=== PATIENT | female | born 1970 | race Caucasian/White ===

== ENCOUNTER 2016-03-02 19:08 | Emergency (ER) | payer OTHER ==
[2016-03-02 19:16] VITALS: BP 105/61
[2016-03-02] MEDS ORDERED: Ibuprofen TAB* 600 MG PO ONE (20:23)
[2016-03-02] MEDS ORDERED: Albuterol/Ipratropium NEB.SOL* Albuterol 2.5 MG/Ipratropium 0.5 MG 3 ML INH ONE (20:25)
--- NOTE | 2016-03-02 20:38 | ED ---
Respiratory - HPI Summary HPI Summary: 45 female presents to ED complaining of chest congestion that started approximately 3 weeks ago. Patient states she was seen by her PCP at onset approximately 3 weeks ago and was given Augmentin. She took the entire dose and had felt some improvement. After about a week her symptoms returned and she states were worse than the first time. She saw her PCP again at this time and was prescribed Doxycycline and Ipatropium-bromide nebulizer. She states neither have improved her symptoms. She states "she is just sick of feeling so crappy". She complains of cough with occasional green mucus production and feeling tight chest congestion. Admits to ear pain, sinus pressure and nasal congestion with post-nasal drip. Admits to nausea but denies vomiting, abdominal pain, diarrhea , constipation and chest pain. She does have body aches and was tested for flu at her PCP as well, however it was negative. She says it gets worse at night and has difficulty breathing. She does not know if she has had a fever because she does not own a thermometer but she admits to chills. - History of Current Complaint Hx Obtained From: Patient Onset/Duration: Sudden Onset, Lasting Weeks Timing: Constant Initial Severity: Mild Current Severity: Moderate Pain Intensity: 10 Character: Cough (Productive) - green mucus, occasionally, Dyspnea on Exertion Sputum Amount: Small Sputum Color: Green Aggravating Factor(s): URI, Deep Breaths, Recumbent Position Alleviating Factor(s): Antibiotics - first treatment of augmentin 3 weeks ago seemed to give some relief Associated Signs and Symptoms: SOB, URI, Chest Pain with Cough, Chills, Nasal Congestion, Sinus Discomfort - Risk Factors Status Asthmaticus Risk Factors: Negative Pulmonary Embolism Risk Factors: Negative Cardiac Risk Factors: Negative Pseudomonas Risk Factors: Negative Tuberculosis Risk Factors: Negative <Mary Davalos - Last Filed: 03/02/16 21:39> <Dk Michael - Last Filed: 03/02/16 21:48> - History of Current Complaint Chief Complaint: EDUpperRespComplaint Stated Complaint: DX BRONCHITIS/NOT IMPROVING Time Seen by Provider: 03/02/16 19:38 - Allergy/Home Medications Allergies/Adverse Reactions: Allergies Allergy/AdvReac Type Severity Reaction Status Date / Time Iodine Allergy Unknown Difficulty Verified 04/22/15 13:20 Breathing Azithromycin [From Zithromax] Allergy RASH, Verified 04/22/15 13:20 DIFFICULTY BREATHING Codeine Allergy BLOOD Verified 04/22/15 13:20 PRESSURE DROPS Hydrocodone Allergy RASH Verified 04/22/15 13:20 DIFFICULTY BREATHING Iodinated Contrast Media Allergy RASH, Verified 04/22/15 13:20 [IV CONTRAST DYE] DIFFICULTY BREATHING Iodinated Diagnostic Agents Allergy Hives/Diff. Verified 04/22/15 13:20 Breathing/I tching Nitrofurantoin Allergy RASH, Verified 04/22/15 13:20 [From Macrodantin] DIFFICULTY BREATHING Prednisone Allergy Anaphylatic Verified 04/22/15 13:20 Shock Sulfamethoxazole Allergy RASH Verified 04/22/15 13:20 w/Trimethoprim DIFFICULTY [From Bactrim] BREATHING ALL STEROIDS Allergy RASH, Uncoded 04/22/15 13:20 DIFFICULTY BREATHING MALT,DAIRY Allergy RASH, Uncoded 04/22/15 13:20 DIFFICULTY BREATHING YEAST,SOY,BLACK PEPPER Allergy RASH, Uncoded 04/22/15 13:20 DIFFICULTY BREATHING PMH/Surg Hx/FS Hx/Imm Hx Endocrine/Hematology History: Reports: Hx Thyroid Disease - ON MED Denies: Hx Diabetes Cardiovascular History: Denies: Hx Hypertension, Hx Pacemaker/ICD, Other Cardiovascular Problems/ Disorders Respiratory History: Reports: Hx Asthma - USES INHALER Denies: Hx Chronic Obstructive Pulmonary Disease (COPD) GI History: Reports: Hx Gastroesophageal Reflux Disease - ON MED Denies: Hx Ulcer History: Reports: Hx Kidney Infection - IN THE PAST Musculoskeletal History: Reports: Hx Arthritis - BACK, BILATERAL HANDS AND FEET , Other Musculoskeletal History - FIBROMYALGIA Sensory History: Denies: Hx Contacts or Glasses, Hx Hearing Aid Opthamlomology History: Denies: Hx Contacts or Glasses Neurological History: Reports: Hx Headaches - SINUS HEADACHES, Hx Migraine - AROUND TIME OF MENSES, Hx Nerve Disease - FIBROMYALGIA Psychiatric History: Reports: Hx Anxiety, Hx Depression - BIPOLAR Denies: Hx Panic Disorder - Cancer History Hx Chemotherapy: No Hx Radiation Therapy: No - Surgical History Surgery Procedure, Year, and Place: LT ELBOW SURGERY. LT WRIST SURGERY. GALL BLADDER. RT OVARY REMOVAL. SINUS SURGERY X 4. D&C X 2. [place] FOURTH [place] [facility] [place] Anesthesia Reactions: No Infectious Disease History: Yes Infectious Disease History: Denies: Hx Hepatitis, Hx Human Immunodeficiency Virus (HIV), Traveled Outside the [place] in Last 30 Days - Family History Known Family History: Positive: Cardiac Disease - Social History Alcohol Use: None Substance Use Type: Reports: None Smoking Status (MU): Never Smoked Tobacco <Mary Davalos - Last Filed: 03/02/16 21:39> Review of Systems Positive: Chills, Fatigue Eyes: Negative Positive: Ear Ache, Nasal Discharge. Negative: Epistaxis Cardiovascular: Negative Positive: Shortness Of Breath, Cough, Other - chest congestion, tightness Positive: Nausea. Negative: Abdominal Pain, Vomiting, Diarrhea Genitourinary: Negative Positive: Myalgia. Negative: Arthralgia, Edema Negative: Rash Positive: Headache Psychological: Normal All Other Systems Reviewed And Are Negative: Yes <VerónicagayeMary blevins - Last Filed: 03/02/16 21:39> Physical Exam Triage Information Reviewed: Yes Vital Signs On Initial Exam: Initial Vitals Temp Pulse Resp BP Pulse Ox 98.9 F 81 18 105/61 100 03/02/16 19:13 03/02/16 19:13 03/02/16 19:13 03/02/16 19:13 03/02/16 19:13 Vital Signs Reviewed: Yes Appearance: Positive: Well-Appearing - laying in stretcher, No Pain Distress, Well-Nourished Skin: Positive: Warm, Skin Color Reflects Adequate Perfusion, Dry Head/Face: Positive: Normal Head/Face Inspection Eyes: Positive: Normal, EOMI, MANASA, Conjunctiva Clear ENT: Positive: Normal ENT inspection, Hearing grossly normal, Pharyngeal erythema - post nasal drip noted, irritation, TMs normal, Other - mild maxillary and frontal sinus tenderness on palpation b/l.. Negative: Nasal congestion, Nasal drainage, Tonsillar swelling, Tonsillar exudate Neck: Positive: Supple, Nontender, No Lymphadenopathy Respiratory/Lung Sounds: Positive: Clear to Auscultation, Breath Sounds Present , Fatigue, Other - non productive cough on exam. Negative: Decreased Breath Sounds, Rales, Rhonchi, Tracheal Deviation, Wheezes Cardiovascular: Positive: Normal, RRR, Pulses are Symmetrical in both Upper and Lower Extremities Abdomen Description: Positive: Nontender Bowel Sounds: Positive: Present Musculoskeletal: Positive: Normal Neurological: Positive: Normal, Sensory/Motor Intact, Alert, Oriented to Person Place, Time Psychiatric: Positive: Normal <AnoopMary - Last Filed: 03/02/16 21:39> Vital Signs On Initial Exam: Initial Vitals Temp Pulse Resp BP Pulse Ox 98.9 F 81 18 105/61 100 03/02/16 19:13 03/02/16 19:13 03/02/16 19:13 03/02/16 19:13 03/02/16 19:13 <Dk Michael - Last Filed: 03/02/16 21:48> Diagnostics - Vital Signs Vital Signs Temp Pulse Resp BP Pulse Ox 03/02/16 19:13 98.9 F 81 18 105/61 100 <Mary Davalos - Last Filed: 03/02/16 21:39> - Vital Signs Vital Signs Temp Pulse Resp BP Pulse Ox 03/02/16 20:50 70 97 03/02/16 19:13 98.9 F 81 18 105/61 100 <Dk Michael - Last Filed: 03/02/16 21:48> Disposition - Course Course Of Treatment: Patient was given a nebulizer treatment while in ED and a dose of Ibuprofen to help with pain and inflammation. Patient was informed what she is experiencing is likely viral due to recent antibiotic use without relief. She is allergic to steroids. Due to length of symptoms, did not feel flu treatment or testing was necessary at this time. Ibuprofen will be prescribed to take at home and she was encouraged to use Mucinex and saline rinses daily to help with mucus. - Differential Dx - Cardiopulmonary Differential Diagnoses - Cardiopulmonary: Asthma, Bronchitis, Laryngitis, Sinusitis, Other - pneumonia, rhinosinusitis - Physician Notifications Discussed Care Of Patient With: Dr Michael <Mary Davalos - Last Filed: 03/02/16 21:39> <Dk Michael - Last Filed: 03/02/16 21:48> - Diagnoses Provider Diagnoses: URI (upper respiratory infection), Sinusitis Discharge <Mary Davalos - Last Filed: 03/02/16 21:39> <Dk Michael - Last Filed: 03/02/16 21:48> - Discharge Plan Condition: Stable Disposition: HOME Prescriptions: Ibuprofen TAB* [Advil TAB*] 400 mg PO Q6H PRN #10 tab PRN Reason: Pain Patient Education Materials: Acute Bronchitis (ED) Referrals: Omar Ruth MD [Primary Care Provider] - Additional Instructions: Take OTC Mucinex to help with breaking up the congestion. Take Ibuprofen or Tylenol as needed to help with pain, discomfort and inflammation. Rest and drink plenty of fluids. Symptomatic measures such as swishing with salt aleja and saline rinses may help with symptoms. Continue taking the prescribed Doxycycline until finished and the nebulizer while symptoms persist. If symptoms worsen or do not improve please return to ED. Follow up with your primary care provider is recommended.
--- NOTE | 2016-03-02 21:48 | ED ---
Tammi Lanza Erika, scribed for Dk Michael MD on 03/02/16 at 205 . Progress - Progress Note Progress Note: Consulting on the patient for FAUSTINO Mukherjee. A 45 y/o F presents to the ED with a CC of URI symptoms for the past 3 weeks. She reports that she took augmentin 3 weeks ago, which improved her symptoms for one week, but then they returned. Last week, she took doxycycline, which did not help symptoms. 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 She denies sore throat. Pt states she has not been tested for the flu. She has no known exposure to illness, but states she works at [employer]. Pt states she has never smoked. Hx asthma - takes singulair, albuterol, and a nebulizer of ipratropium bromide. Physical Exam: The patient is well-nourished in no acute distress and in no acute pain. The skin is warm and dry and skin color reflects adequate perfusion. HEENT: The head is normocephalic and atraumatic. The pupils are equal and reactive. The conjunctivae are clear and without drainage. Nares are patent and without drainage. There is bilateral frontal sinus tenderness. There is no post-nasal drip. Mouth reveals moist mucous membranes and the throat is without erythema and exudate. The external ears are intact. The ear canals are patent and without drainage. The tympanic membranes are intact. Neck is supple with full range of motion and non-tender. There are no carotid bruits. There is no neck vein distension. Respiratory: Chest is non-tender. Lungs are clear to auscultation and breath sounds are symmetrical and equal. Cardiovascular: Heart is regular rate and rhythm. There is no murmur or rub auscultated. There is no peripheral edema and pulses are symmetrical and equal. Neurological and Psychological: Patient is alert and cooperative. Please refer to note by FAUSTINO Mukherjee for more information. Course/Dx - Diagnoses Provider Diagnoses: URI (upper respiratory infection), Sinusitis The documentation as recorded by the Tammi maciel Erika accurately reflects the service I personally performed and the decisions made by me, Dk Michael MD.
== END 2016-03-02 22:04 | disposition home or self-care (01) ==
LOC: ED 19:08
DX: J06.9 Acute upper respiratory infection, unspecified (principal); J32.9 Chronic sinusitis, unspecified; E07.9 Disorder of thyroid, unspecified; M79.7 Fibromyalgia; F31.9 Bipolar disorder, unspecified; Z88.2 Allergy status to sulfonamides; Z88.8 Allergy status to other drugs, medicaments and biological substances; Z88.5 Allergy status to narcotic agent; Z88.3 Allergy status to other anti-infective agents; Z91.041 Radiographic dye allergy status
CPT/HCPCS: 93005; 94640; 99282; A9270-GY

== ENCOUNTER 2016-09-10 06:06 | Day surgery (SDC) | payer OTHER ==
[~2016-09-10 06:06] MED LIST: Buffered Lidocaine 0.9% SYRIN* 5 ML/SYR SYRINGE INTRADERM ONE; Sodium Citrate/Citric Acid* 15 ML UDC PO ONE
[2016-09-10 06:19] LABS: Manual Entry Verification ROB0080; UR Preg Internal Control QC Line Present
[2016-09-10] MEDS ORDERED: Sodium Citrate/Citric Acid* 15 ML UDC ONE (06:47)
[2016-09-10] MEDS ORDERED: Buffered Lidocaine 0.9% SYRIN* 5 ML/SYR SYRINGE ONE (06:47)
[2016-09-10] MEDS ORDERED: Silver Nitrate/Potassium Nitr* 1 EA STICK ONE (07:26)
[2016-09-10] MEDS ORDERED: Midazolam* 1 MG/ML 2 ML VIAL (2 MG) ONE (07:34)
[2016-09-10] MEDS ORDERED: Lidocaine 2% PF * 5 ML VIAL ONE (07:34)
[2016-09-10] MEDS ORDERED: Propofol* 10 MG/ML 20 ML BTL IV PUSH ONE (07:34)
[2016-09-10] MEDS ORDERED: fentaNYL* 50 MCG/ML 2 ML VIAL (100 MCG VIAL) ONE (07:35)
[2016-09-10] MEDS ORDERED: DiMENhydriNATE IV* 50 MG/ML VIAL IV PUSH PRN (08:07)
[2016-09-10] MEDS ORDERED: Ketorolac INJ* 30 MG/ML 1 ML VIAL IV PRN (08:07)
[2016-09-10] MEDS ORDERED: fentaNYL* 50 MCG/ML 2 ML VIAL (100 MCG VIAL) IV PRN (08:07)
[2016-09-10] MEDS ORDERED: Ketorolac INJ* 30 MG/ML 1 ML VIAL ONE (09:40)
[2016-09-10 10:08] VITALS: BP 116/69
--- NOTE | 2016-09-10 15:56 | OP ---
DATE OF OPERATION: 09/10/16 - FORMERLY [facility] DATE OF : 74 SURGEON: Tita Weiss MD ANESTHESIA: General endotracheal. PRE-OP DIAGNOSIS: Menorrhagia. POST-OP DIAGNOSIS: Menorrhagia. OPERATIVE PROCEDURE: Hysteroscopy, dilation and curettage. INDICATIONS: This patient is a 45-year-old 1, para 0, who presented with complaint of persistent heavy periods. Endometrial biopsy was performed and returned with benign endometrium. After discussing the patient's options, she desired to have an endometrial ablation performed. She was extensively counseled and consent was signed. ESTIMATED BLOOD LOSS: 50 cc. URINE OUTPUT: 60 cc. IV FLUIDS: 700 cc lactated Ringer's. MATERIALS TO LAB: Endometrial curettings. FINDINGS: Extremely narrow cervical canal and very narrow uterine cavity. Endometrial ablation could not be performed because the ablation device could not be sufficiently opened inside the cavity. COMPLICATIONS: Discontinued ablation. DESCRIPTION OF PROCEDURE: The risks, benefits, and alternatives were described to the patient and informed consent was obtained. The patient was taken to the operating room with IV running, where general anesthesia was induced and found to be adequate. The patient was prepped and draped in normal sterile fashion in a high lithotomy position and Berhane Stirrups. A time out was performed. The bladder was emptied. A bivalved speculum was placed in the vagina and a single- tooth tenaculum was placed in the anterior cervix. Extra small Carter dilators were then used to gradually dilate the cervical canal. The canal was located without difficulty. The uterus sounded to about 7 cm. The cervix was progressively dilated with some difficulty until a 5-mm hysteroscope could be advanced. This was then placed through the cervix and into the uterine cavity. The uterine cavity was visualized and noted to be quite narrow, but otherwise did not seem to have any significant abnormalities. The hysteroscope was removed. The cervix was then additionally dilated to about a size 25 or 26. This was extremely difficult as the cervix was very firm. During this process, the single-tooth tenaculum pulled off from the cervix and caused a laceration on the anterior cervix. The NovaSure device was inserted through the cervix and into the uterine cavity; however, the device could not be adequately opened. After several attempts with this, a different NovaSure device was obtained and this again was unsuccessful at adequately opening. A cavity assessment was performed and this returned positive. The Novasure was removed and hysteroscope was replaced into the uterine cavity. It appeared that the corner points of the NovaSure device had pushed into the myometrium at the very top of the uterus. There was no bleeding from this site and a specific perforation site could not be visualized. Considering these difficulties, the procedure was discontinued at that time. The hysteroscope was removed. The cervical laceration was reapproximated well with 3-0 Polysorb in a running locked stitch. There was excellent hemostasis present. At that time, speculum was removed and the patient was returned to supine position. The patient tolerated the procedure well. Sponge, lap, and needle counts were correct x2. [id number]/[facility] #: [id number] MTDD
== END 2016-09-10 10:29 | disposition home or self-care (01) ==
LOC: OR 06:06
PROVIDERS: ATTEND Obstetrics & Gynecology
DX: N92.0 Excessive and frequent menstruation with regular cycle (principal); J45.909 Unspecified asthma, uncomplicated; F43.10 Post-traumatic stress disorder, unspecified; F31.9 Bipolar disorder, unspecified
CPT/HCPCS: 81025; 88305; A9270-GY; J1885; J2250; J2704; J3010

== ENCOUNTER 2016-09-13 20:41 | Emergency (ER) | payer OTHER ==
--- NOTE | 2016-09-13 20:46 | UC ---
Lower Extremity/Ankle HPI - HPI Summary HPI Summary: 45 year old female presents with complains of right ankle/foot pain post fall. - History of Current Complaint Chief Complaint: UCLowerExtremity Stated Complaint: ANKLE INJURY Time Seen by Provider: 09/13/16 20:45 Hx Last Menstrual Period: 04/25/12 - Allergies/Home Medications Allergies/Adverse Reactions: Allergies Allergy/AdvReac Type Severity Reaction Status Date / Time Iodine Allergy Unknown Difficulty Verified 09/10/16 06:54 Breathing Azithromycin [From Zithromax] Allergy RASH, Verified 09/10/16 06:54 DIFFICULTY BREATHING Codeine Allergy BLOOD Verified 09/10/16 06:54 PRESSURE DROPS Hydrocodone Allergy RASH Verified 09/10/16 06:54 DIFFICULTY BREATHING Iodinated Contrast Media Allergy RASH, Verified 09/10/16 06:54 [IV CONTRAST DYE] DIFFICULTY BREATHING Nitrofurantoin Allergy RASH, Verified 09/10/16 06:54 [From Macrodantin] DIFFICULTY BREATHING Prednisone Allergy Anaphylatic Verified 09/10/16 06:54 Shock Sulfamethoxazole Allergy RASH Verified 09/10/16 06:54 w/Trimethoprim DIFFICULTY [From Bactrim] BREATHING ALL STEROIDS Allergy RASH, Uncoded 09/10/16 06:54 DIFFICULTY BREATHING Environmental: Allergy Congestion Uncoded 09/10/16 06:54 tree/grass/pollen MALT,DAIRY Allergy RASH, Uncoded 09/10/16 06:54 DIFFICULTY BREATHING YEAST,SOY,BLACK PEPPER Allergy RASH, Uncoded 09/10/16 06:54 DIFFICULTY BREATHING Home Medications: Home Medications DOXYcycline CAP(*) [DOXYcycline 100MG CAP(*)] 100 mg PO BID 09/13/16 [History Confirmed 09/13/16] PMH/Surg Hx/FS Hx/Imm Hx Previously Healthy: Yes - Surgical History Surgical History: Yes Surgery Procedure, Year, and Place: LT ELBOW SURGERY. LT WRIST SURGERY. GALL BLADDER. RT OVARY REMOVAL. SINUS SURGERY X 4. LEFT & RIGHT FOOT SURGERY. D& C X 2. LEFT FOURTH TOE REPAIR 2012 [facility] [place] - Family History Known Family History: Positive: Cardiac Disease, Other - Mcnair's Disease ( mother) - Social History Alcohol Use: None Substance Use Type: None Smoking Status (MU): Never Smoked Tobacco - Immunization History Most Recent Tetanus Shot: 2011 Review of Systems Constitutional: Negative Skin: Negative Eyes: Negative ENT: Negative Respiratory: Negative Cardiovascular: Negative Gastrointestinal: Negative Genitourinary: Negative Motor: Negative Neurovascular: Negative Musculoskeletal: Decreased ROM, Edema, Myalgia, Other: - right ankle/foot pain Neurological: Negative Psychological: Negative All Other Systems Reviewed And Are Negative: Yes Physical Exam Triage Information Reviewed: Yes Eye Exam: Normal ENT Exam: Normal Dental Exam: Normal Neck exam: Normal Neck: Positive: 1 Respiratory Exam: Normal Cardiovascular Exam: Normal Abdominal Exam: Normal Musculoskeletal: Positive: Other: - right ankle/foot pain Neurological Exam: Normal Psychological Exam: Normal Skin Exam: Normal Lower Extremity Course/Dx - Differential Dx/Diagnosis Provider Diagnoses: right ankle/foot sprain Discharge - Discharge Plan Condition: Stable Disposition: HOME Prescriptions: Meloxicam [Mobic] 7.5 mg PO BID #30 tab Patient Education Materials: Ankle Sprain (ED) Referrals: Dayron Daugherty MD [Medical Doctor] - Omar Ruth MD [Primary Care Provider] -
[2016-09-13 20:47] VITALS: BP 103/55
--- NOTE | 2016-09-13 22:22 | RAD ---
INDICATION: Foot and ankle injury COMPARISON: Fluoroscopic imaging dated October 26, 2014 TECHNIQUE: 3 views of the right ankle and 3 views of the right foot were obtained. FINDINGS: There is an intact single medullary screw spanning the right fifth metatarsal with the midline portion of the screw extending from the cortex of the bone 4 mm. The bones are normal alignment. Joint spaces appear maintained. No fracture is seen. IMPRESSION: 1. NO RADIOGRAPHICALLY APPARENT ACUTE FRACTURE OR DISLOCATION INVOLVING THE RIGHT FOOT OR ANKLE. 2. THERE IS A SINGLE MEDULLARY SCREW SPANNING THE RIGHT FIFTH METATARSAL. THE MIDLINE PORTION OF THE SCREW EXTENDS BEYOND THE MEDIAL MARGIN OF THE METATARSAL.
== END 2016-09-13 22:10 | disposition home or self-care (01) ==
LOC: UCEAST 20:41
DX: S93.401A Sprain of unspecified ligament of right ankle, initial encounter (principal); W19.XXXA Unspecified fall, initial encounter; Z88.2 Allergy status to sulfonamides; Z88.3 Allergy status to other anti-infective agents; Z88.5 Allergy status to narcotic agent; Z91.041 Radiographic dye allergy status
CPT/HCPCS: 99213; G0463

== ENCOUNTER 2016-12-08 19:44 | Emergency (ER) | payer OTHER ==
[2016-12-08 20:05] VITALS: BP 93/57
--- NOTE | 2016-12-08 20:09 | UC ---
Lower Extremity/Ankle HPI - HPI Summary HPI Summary: 45y/o female with h/o PTSD, bipolar, fibromyalgia presents with ankle pain today after dog ran between legs. patient states same thing occurred ~ 1 week ago and suffered an ankle sprain. no ankle injuries, h/o bunion surgery right lateral foot. no other complaints. PMH- bipolar, PTSD, fibromyalgia, meds- lamictal, wellbutrin, ativan. - History of Current Complaint Chief Complaint: UCLowerExtremity Stated Complaint: ANKLE INJURY Time Seen by Provider: 12/08/16 19:46 Hx Obtained From: Patient Hx Last Menstrual Period: 11/18/16 Onset/Duration: Sudden Onset, Lasting Hours Severity Initially: Moderate Severity Currently: Moderate - Allergies/Home Medications Allergies/Adverse Reactions: Allergies Allergy/AdvReac Type Severity Reaction Status Date / Time Iodine Allergy Unknown Difficulty Verified 12/08/16 20:05 Breathing Azithromycin [From Zithromax] Allergy RASH, Verified 12/08/16 20:05 DIFFICULTY BREATHING Codeine Allergy BLOOD Verified 12/08/16 20:05 PRESSURE DROPS Hydrocodone Allergy RASH Verified 12/08/16 20:05 DIFFICULTY BREATHING Iodinated Contrast Media Allergy RASH, Verified 12/08/16 20:05 [IV CONTRAST DYE] DIFFICULTY BREATHING Nitrofurantoin Allergy RASH, Verified 12/08/16 20:05 [From Macrodantin] DIFFICULTY BREATHING Prednisone Allergy Anaphylatic Verified 12/08/16 20:05 Shock Sulfamethoxazole Allergy RASH Verified 12/08/16 20:05 w/Trimethoprim DIFFICULTY [From Bactrim] BREATHING ALL STEROIDS Allergy RASH, Uncoded 09/10/16 06:54 DIFFICULTY BREATHING Environmental: Allergy Congestion Uncoded 09/10/16 06:54 tree/grass/pollen MALT,DAIRY Allergy RASH, Uncoded 09/10/16 06:54 DIFFICULTY BREATHING YEAST,SOY,BLACK PEPPER Allergy RASH, Uncoded 09/10/16 06:54 DIFFICULTY BREATHING Home Medications: Home Medications Albuterol HFA INHALER* [Ventolin HFA Inhaler*] PRN 12/08/16 [History] Epinephrine [Epipen 2-Joseph] 0.3 mg IM PRN 12/08/16 [History] PMH/Surg Hx/FS Hx/Imm Hx Previously Healthy: Yes - ptsd bipolar, recent ankle sprain Psychological History: Anxiety, Depression, Bipolar Disorder, Post Traumatic Stress Disorder - Surgical History Surgical History: Yes Surgery Procedure, Year, and Place: LT ELBOW SURGERY. LT WRIST SURGERY. GALL BLADDER. RT OVARY REMOVAL. SINUS SURGERY X 4. LEFT & RIGHT FOOT SURGERY. D& C X 2. LEFT FOURTH TOE REPAIR 2012 [facility] – [place] - Family History Known Family History: Positive: Cardiac Disease, Other - Mcnair's Disease ( mother) - Social History Alcohol Use: None Substance Use Type: None Smoking Status (MU): Never Smoked Tobacco - Immunization History Most Recent Tetanus Shot: 2011 Review of Systems Constitutional: Negative Musculoskeletal: Arthralgia, Decreased ROM, Edema, Myalgia Is Patient Immunocompromised?: No All Other Systems Reviewed And Are Negative: Yes Physical Exam Triage Information Reviewed: Yes Appearance: Well-Appearing, No Pain Distress - none at rest, Well-Nourished Vital Signs: Initial Vital Signs Temp 97.5 F 12/08/16 20:01 Pulse 96 12/08/16 20:01 Resp 16 12/08/16 20:01 BP 93/57 12/08/16 20:01 Pulse Ox 100 12/08/16 20:01 Eyes: Positive: Conjunctiva Clear Musculoskeletal: Positive: ROM Intact - PROM intact, decreased ROM right ankle with DF/PF due to pain, strenght 2/5 . minimal ecchymosis over lat mal, moderate swelling, no intability appreciate, achillies intact, PT 2+ b/l., Edema @ - lateral malleolus Neurological Exam: Normal Neurological: Positive: Other: - SITLT right LE Psychological Exam: Normal Skin Exam: Normal - intact skin Lower Extremity Course/Dx - Course Course Of Treatment: radiograph- negative for fracture. patient has CAM boot at home, gel cast given with instructions to use CAM boot with weight bearing as tolerated using crutches (has at home) until minimal pain and increase as pain allows, follow up with ortho if no improvement within 3-5 days. motrin for pain - Differential Dx/Diagnosis Provider Diagnoses: ankle sprain, right Discharge - Discharge Plan Condition: Good Disposition: HOME Patient Education Materials: Ankle Sprain (ED), Ankle Stirrup Splint (ED) Referrals: Omar Ruth MD [Primary Care Provider] - Jama Albrecht MD [Medical Doctor] - Additional Instructions: - Motrin 400-600mg every 6 hours x 24 hours to decrease swelling - CAM boot for 1-2 days then use gel cast as needed for comfort or when doing longer walks/ uneven ground x 1-2 months - follow up with orthopedics within 5-7 days if no improvement - weight bearing as tolerated, use crutches for support over next 3-7 days
--- NOTE | 2016-12-08 20:51 | RAD ---
INDICATION: Right ankle injury COMPARISON: September 13, 2009 TECHNIQUE: AP, lateral, and oblique views were obtained. FINDINGS: There is no acute fracture. The ankle mortise is intact. There is mild lateral soft tissue swelling. There is postsurgical change but the fifth metatarsal, unchanged. IMPRESSION: MILD LATERAL SOFT TISSUE SWELLING. NO ACUTE FRACTURE.
== END 2016-12-08 21:10 | disposition home or self-care (01) ==
LOC: UCEAST 19:44
DX: S93.401A Sprain of unspecified ligament of right ankle, initial encounter (principal); X58.XXXA Exposure to other specified factors, initial encounter; Y93.9 Activity, unspecified; Y92.9 Unspecified place or not applicable; F41.9 Anxiety disorder, unspecified; F31.9 Bipolar disorder, unspecified; Z88.5 Allergy status to narcotic agent; Z88.2 Allergy status to sulfonamides; Z88.8 Allergy status to other drugs, medicaments and biological substances; Z88.1 Allergy status to other antibiotic agents; Z91.041 Radiographic dye allergy status; Z90.49 Acquired absence of other specified parts of digestive tract
CPT/HCPCS: 99213; G0463

== ENCOUNTER 2017-01-19 13:16 | Emergency (ER) | payer OTHER ==
[2017-01-19] MEDS ORDERED: Diazepam SYRINGE* 5 MG/ML 2 ML SYRINGE (10 MG total) IM ONE (14:20)
[2017-01-19 14:36] VITALS: BP 95/61
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
== END 2017-01-19 14:35 | disposition home or self-care (01) ==
LOC: ED 13:16
DX: F41.9 Anxiety disorder, unspecified (principal); F43.10 Post-traumatic stress disorder, unspecified; F32.9 Major depressive disorder, single episode, unspecified
CPT/HCPCS: 96372; 99281; J3360

== ENCOUNTER 2017-10-13 23:07 | Emergency (ER) | payer OTHER ==
--- OUTSIDE RECORDS SUMMARY | 2017-10-13 23:20 | XMS REPORT ---
:1970 External Reference #:[id number] Author Organization [facility] Address [address] [place] [address] Phone [phone] Care Team Providers Name Role Phone Omar Ruth MD Primary Care Physician Unavailable Payers Type Date Identification Numbers Payment Provider Subscriber Commercial Effective: Policy Number: [employer] Godfrey Sheldon 2015 [id number] Group Number: [id number] [address] PayID: [id number] [place] [address] Commercial Effective: 2016 Policy Number: [facility] Suzanne Sheldon [id number] Expires: 2018 Group Number: 50% [id number] PayID: [id number] [place] [address] Workers Compensation Effective: Policy Number: Helena Rubio 2016 [id number] Inc c/o [employer] Monalisa Onset: 2016 Group Number: [id number] [address] [address] PayID: [id number] [place] [address] Workers Compensation Onset: 2008 Policy Number: David Suzanne Rubio [id number] Monalisa PayID: [id number] [address] [place] [address] Problems Date Description Provider Status Onset: 06/04/2014 Headache Anmol Murphy M.D. Active Onset: 06/04/2014 Neck pain Anmol Murphy M.D. 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 Yes due to allergies/does not eat meat Do you have problems with snoring, Day time fatigue ? No - Snoring; Yes - day time fatigue Allergies, Adverse Reactions, Alerts Date Description Reaction Status Severity Comments 06/04/2014 Zithromax Anaphylaxis active Severe 06/04/2014 Bactrim Anaphylaxis active Severe 06/04/2014 Codeine low bp active Moderate to Severe 06/04/2014 Steroids Anaphylaxis active Severe 06/04/2014 CT Dye Urticaria active Mild to Moderate 05/21/2016 Macrodantin lip swelling difficulty active Severe breath Medications Medication Date Status Form Strength Qnty SIG Indications Ordering Provider Montelukast / Active Tablets 10mg 1 qd Galyanova Sodium 0000 Sherie MD Lamotrigine / Active Tablets 200mg 1 qd Nygren, 0000 MD Karin Trazodone HCL / Active Tablets 150mg PO at Unknown 0000 bedtime Multi For Her / Active Capsules 1 by mouth Unknown 0000 every day Albuterol / Active Nebulizer (2.5mg/3ML 1 vial via Unknown Sulfate 0000 ) 0.083% nebulizer 4 times daily as needed Proair HFA / Active Aerosol 108(90Base 2 puffs by Unknown 0000 ) mcg/Act mouth every 4 hours as needed Wellbutrin SR / Active Tablets ER 100mg 1 by mouth Unknown 0000 12HR every morning Ibuprofen / Active Tablets 600mg Isela 0000 Tita Villalobos MD Klonopin / Active Tablets 0.5mg as needed Unknown 0000 Robaxin-750 11/09/ Hx Tablets 750mg 40tabs 1-2 q8h néstor Santiago - muscle Zupruk, 06/04/ tanya Escobar 2014 Omeprazole / Hx Capsules DR 40mg 1 qd Galyanova 0000 - , 05/17/ Sherie Banks MD Trazodone HCL / Hx Tablets 50mg Regan 0000 Brennon Frazier, 06/04/ 2014 Cetirizine / Hx Tablets 10mg 1 qd Unknown HCL 0000 Lorazepam / Hx Tablets 1mg as needed Unknown 0000 Meloxicam / Hx Tablets 7.5mg Unknown 0000 Doxycycline / Hx Capsules 100mg Yassine Weissclate 0000 Tita Villalobos MD Vital Signs Date Vital Result Comment 10/07/2017 Heart Rate 60 /min BP Systolic Sitting 112 mmHg BP Diastolic Sitting 70 mmHg Body Temperature 99.0 F Pain Level 7 05/25/2017 Height 63 inches 5'3" Weight 121.00 lb Heart Rate 80 /min BP Systolic 115 mmHg BP Diastolic 64 mmHg Respiratory Rate 16 /min Body Temperature 98.0 F BMI (Body Mass Index) 21.4 kg/m2 10/06/2016 Height 63 inches 5'3" Weight 130.00 lb Heart Rate 69 /min BP Systolic 90 mmHg BP Diastolic 59 mmHg Respiratory Rate 15 /min Pain Level 6 BMI (Body Mass Index) 23.0 kg/m2 09/15/2016 Height 63 inches 5'3" Weight 130.00 lb BP Systolic 91 mmHg BP Diastolic 54 mmHg Respiratory Rate 15 /min Pain Level 5 BMI (Body Mass Index) 23.0 kg/m2 07/21/2016 Heart Rate 72 /min BP Systolic Sitting 98 mmHg BP Diastolic Sitting 60 mmHg Respiratory Rate 16 /min Body Temperature 98.5 F 05/21/2016 Height 63 inches 5'3" Weight 137.00 lb without shoes Heart Rate 66 /min BP Systolic 112 mmHg Rue reg cuff BP Diastolic 66 mmHg Rue reg cuff BP Systolic Sitting 108 mmHg Lue reg cuff BP Diastolic Sitting 68 mmHg Lue reg cuff BP Systolic Standing 100 mmHg Lue reg cuff BP Diastolic Standing 64 mmHg Lue reg cuff Respiratory Rate 16 /min BMI (Body Mass Index) 24.3 kg/m2 06/04/2014 Height 63 inches 5'3" Weight 135.00 lb Heart Rate 76 /min BP Systolic Sitting 122 mmHg BP Diastolic Sitting 78 mmHg Pain Level 3 headache BMI (Body Mass Index) 23.9 kg/m2 Results Test Date Test Result H/L Range Note Laboratory test finding 05/28/2016 B-Type Natriuretic Peptide 96 pg/mL 1 BNP 1 >100 to <200 pg/mL: likely compensated congestive heart failure (CHF) 200 to 400 pg/mL: likely moderate CHF >400 pg/mL: likely moderate to severe CHF Procedures Date CPT Code Description Status 05/06/2017 Mammogram Completed 06/10/2016 46615 ECHO Stress Test Incl Perf Contiuous ekg Monitoring Completed W/Phys Superv 06/10/2016 59827 ECHO Stress Test Incl Perf Contiuous ekg Monitoring Completed W/Phys Superv 06/08/2016 07941 Holter Monitor Review (24 hr)dr review & interp only Completed 06/08/2016 58193 Holter Monitor Review (24 hr)dr review & interp only Completed 06/04/2016 13042 ECG Monitor/Recording W/Visual Superimposition Scanning Completed 06/04/2016 12385 ECG Monitor/Recording W/Visual Superimposition Scanning Completed 06/01/2016 44940 Holter Monitor Review (24 hr)dr review & interp only Completed 06/01/2016 08763 ECG Monitor/Recording W/Visual Superimposition Scanning Completed 06/01/2016 62607 ECG Monitor/Recording W/Visual Superimposition Scanning Completed 05/21/2016 84656 EKG Tracing & Interpretation Completed 05/05/2016 Mammogram Completed 12/03/2015 Mammogram Completed 01/15/2011 95859 Rad Exam; Elbow, Comp Completed Encounters Type Date Location Provider CPT E/M Dx Office Visit 05/25/2017 [facility] Michael Soni, 06355 N63.10 9:00a Of Isra Escobar Office Visit 10/06/2016 [facility] Jama Albrecht, 70042 S93.401D 11:15a Of Deandre VACA S90.31xD Office Visit 09/15/2016 2:45p [facility] Jama Ladd 42907 S93.401A Of Deandre Albrecht MD Office Visit 07/21/2016 11:30a [facility] Yen Salinas, 67066 N64.4 Of Irsa VACA Office Visit 05/21/2016 10:47a [facility] Of Corey Severino, 27321 R07.9 [facility] DO FACC R00.2 R06.02 Office Visit 11/26/2015 1:00p [facility] Of Wu Granados M.D. 88898 D69.6 [facility] AT [place] R53.83 M79.7 E07.9 Office Visit 06/04/2014 11:30a [facility] Anmol Murphy M.D. 90363 723.1 Of [facility] 784.0 Office Visit 02/23/2011 9:30a [facility] Of Melquiades Jean M.D. 54471 840.9 [facility] 726.10 Office Visit 01/29/2011 11:15a [facility] Of Melquiades Jean M.D. 33003 840.9 [facility] Office Visit 01/15/2011 10:45a [facility] Of Melquiades Jean M.D. 32330 840.9 [facility] Office Visit 11/09/2008 10:45a [facility] Of Long Salmeron, 27566 847.0 Isra Escobar Plan of Care Future Appointment(s):11/08/2017 1:45 pm - Jama Albrecht MD at [facility] Of [facility]11/26/2017 9:30 am - Michael Soni M.D. at [facility]/07/2017 - Jama Albrecht, MDM79.671 Pain in right footNew Xrays:Foot Right 3+ VWS
--- OUTSIDE RECORDS SUMMARY | 2017-10-13 23:20 | XMS REPORT ---
:1970 External Reference #:[id number] Author Organization [facility] Address [address] [place] [address] Phone [phone] Care Team Providers Name Role Phone Omar Ruth MD Primary Care Physician Unavailable Payers Type Date Identification Numbers Payment Provider Subscriber Commercial Effective: Policy Number: [employer] Godfrey Sheldon 2015 [id number] Group Number: [id number] [address] PayID: [id number] [place] [address] Commercial Effective: 2016 Policy Number: [facility] Suzanne Sheldon [id number] Expires: 2018 Group Number: 50% [id number] PayID: [id number] [address] [place] [address] Workers Compensation Effective: Policy Number: Helena Rubio 2016 [id number] Inc c/o [employer] Monalisa Onset: 2016 Group Number: [id number] [address] [address] PayID: [id number] [place] [address] Workers Compensation Onset: 2008 Policy Number: David Suzanne Rubio [id number] Monalisa PayID: [id number] [address] [place] [address] Problems Date Description Provider Status Onset: 06/04/2014 [...] Marital Status Lives With Occupation Disabled 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 -[employer] ETOH Use Denies alcohol use Smoking [...] Code Description Status 05/06/2017 Mammogram Completed 06/10/2016 43622 ECHO Stress Test Incl Perf Contiuous ekg Monitoring Completed W/Phys Superv 06/10/2016 57287 ECHO Stress Test Incl Perf Contiuous ekg Monitoring Completed W/Phys Superv 06/08/2016 84581 Holter Monitor Review (24 hr)dr review & interp only Completed 06/08/2016 68337 Holter Monitor Review (24 hr)dr review & interp only Completed 06/04/2016 57343 ECG Monitor/Recording W/Visual Superimposition Scanning Completed 06/04/2016 80354 ECG Monitor/Recording W/Visual Superimposition Scanning Completed 06/01/2016 10108 Holter Monitor Review (24 hr)dr review & interp only Completed 06/01/2016 64737 ECG Monitor/Recording W/Visual Superimposition Scanning Completed 06/01/2016 56508 ECG Monitor/Recording W/Visual Superimposition Scanning Completed 05/21/2016 28714 EKG Tracing & Interpretation Completed 05/05/2016 Mammogram Completed 12/03/2015 Mammogram Completed 01/15/2011 04008 Rad Exam; Elbow, Comp Completed Encounters Type Date Location Provider CPT E/M Dx Office Visit 05/25/2017 [facility] Michael Soni, 62877 N63.10 9:00a Of Isra Escobar Office Visit 10/06/2016 [facility] Jama Albrecht, 77275 S93.401D 11:15a Of Deandre VACA S90.31xD Office Visit 09/15/2016 2:45p [facility] Jama Ladd 17876 S93.401A Of Deandre Albrecht MD Office Visit 07/21/2016 11:30a [facility] Yen Salinas, 71988 N64.4 Of Isra VACA Office Visit 05/21/2016 10:47a [facility] Of Corey Severino, 74433 R07.9 [facility] DO FACC R00.2 R06.02 Office Visit 11/26/2015 1:00p [facility] Of Wu Granados M.D. 78868 D69.6 [facility] AT [place] R53.83 M79.7 E07.9 Office Visit 06/04/2014 11:30a [facility] Anmol Murphy M.D. 19545 723.1 Of [facility] 784.0 Office Visit 02/23/2011 9:30a [facility] Of Melquiades Jean M.D. 30088 840.9 [facility] 726.10 Office Visit 01/29/2011 11:15a [facility] Of Melquiades Jean M.D. 56736 840.9 [facility] Office Visit 01/15/2011 10:45a [facility] Of Melquiades Jean M.D. 48069 840.9 [facility] Office Visit 11/09/2008 10:45a [facility] [place], 41561 847.0 Isra Escobar Plan of Care Future Appointment(s):11/26/2017 9:30 am - Michael Soni M.D. at [facility]/2017 - Jama Albrecht, MDM79.671 Pain in right footNew Xrays:Foot Right 3+ VWS
[2017-10-14 00:41] LABS: ABS Basophils 0 10^3/ul (0-0.2); ABS Eosinophils 0 10^3/ul (0-0.6); ABS Lymphocytes 1.6 10^3/ul (1.0-4.8); ABS Monocytes 0.3 10^3/ul (0-0.8); ABS Neutrophils 1.2 10^3/ul (1.5-7.7); ABS Nucleated RBC 0 10^3/ul; Eosinophil % 1.4 % (0-6); Hematocrit 35 % (35-47); Lymphocyte % 49.2 % (25-47); Mean Corpuscular HGB Conc 34 g/dl (31-36); Mean Corpuscular Hemoglobin 33 pg (27-31); Mean Corpuscular Volume 97 fL (80-97); Mean Platelet Volume 8.9 um3 (7.4-10.4); Nucleated Red Blood Cells % 0; Platelet Count 149 10^3/ul (150-450); Red Blood Count 3.61 10^6/ul (4.00-5.40); Red Cell Distribution Width 12 % (10.5-15); White Blood Count 3.2 10^3/ul (3.5-10.8)
[2017-10-14 00:57] LABS: EGFR Non-African American 73.7 (>60)
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
[2017-10-14 02:36] VITALS: BP 118/75
--- NOTE | 2017-10-14 07:50 | ED ---
Head Injury - HPI Summary HPI Summary: Patient is a 46 y/o F w/ c/o head injury onsetting two days ago. Patient was on a circular amusement ride at [place] and states that she had her head jerked backwards to her shoulders violently, which caused BLAND, N, dizziness immediately. Sx exacerbated yesterday and patient reports a lot of pain and pressure. On triage, pain is rated 8/10 and nothing is noted to aggravate/ alleviate Sx. She went to another hospital previously for these Sx and states that they told her there was a mass or contusion in her head. In the room, she notes pressure at the front of her head. She denies numbness, vision changes. She reporst Hx of fibromyalgia, BPD, depression. FMHx negative for aneurysms. LNMP was 09/29/17. - History Of Current Complaint Chief Complaint: EDHeadInjury Stated Complaint: DIZZINESS, HEAD PAIN/INJURY Time Seen by Provider: 10/14/17 00:23 Hx Obtained From: Patient Hx Last Menstrual Period: 11/18/16 Mechanism Of Injury: Other - circular amusement ride Onset/Duration: Started Days Ago - two days ago, Still Present, Worse Since - yesterday Severity Currently: Severe - 8/10 Pain Intensity: 8 Pain Scale Used: 0-10 Numeric - 8/10 Location of Head Injury: Frontal - pressure Character: Pressure Aggravating Factor(s): Other: - nothing Alleviating Factor(s): Other: - nothing Associated Signs And Symptoms: Nausea, Other: - NEGATIVE: numbness, vision changes POSITIVE: dizziness - Allergies/Home Medications Allergies/Adverse Reactions: Allergies Allergy/AdvReac Type Severity Reaction Status Date / Time codeine Allergy Unknown Verified 10/13/17 23:19 Reaction Details hydrocodone Allergy Unknown Verified 10/13/17 23:19 Reaction Details iodine Allergy Unknown Verified 10/13/17 23:19 Reaction Details nitrofurantoin Allergy Unknown Verified 10/13/17 23:19 [From Macrodantin] Reaction Details prednisone Allergy Unknown Verified 10/13/17 23:19 Reaction Details sulfamethoxazole Allergy Unknown Verified 10/13/17 23:19 [From Bactrim] Reaction Details trimethoprim [From Bactrim] Allergy Unknown Verified 10/13/17 23:19 Reaction Details ALL STEROIDS Allergy RASH, Uncoded 10/13/17 23:19 DIFFICULTY BREATHING Environmental: Allergy Congestion Uncoded 10/13/17 23:19 tree/grass/pollen IV dye Allergy Unknown Uncoded 10/13/17 23:19 Reaction Details MALT,DAIRY Allergy RASH, Uncoded 10/13/17 23:19 DIFFICULTY BREATHING YEAST,SOY,BLACK PEPPER Allergy RASH, Uncoded 10/13/17 23:19 DIFFICULTY BREATHING PMH/Surg Hx/FS Hx/Imm Hx Endocrine/Hematology History: Reports: Hx Bone Marrow Disease - hx of thrombocytopenia, Hx Thyroid Disease - hx of, but no longer taking medication Denies: Hx Diabetes Cardiovascular History: Denies: Hx Hypertension, Hx Pacemaker/ICD, Other Cardiovascular Problems/ Disorders Respiratory History: Reports: Hx Asthma - USES INHALER, cold and allergy induced Denies: Hx Chronic Obstructive Pulmonary Disease (COPD) GI History: Reports: Hx Gastroesophageal Reflux Disease - hx of, no longer taking medication, Other GI Disorders - pt states she often has "low blood sugar ", 2-3 x a week Denies: Hx Ulcer History: Reports: Hx Kidney Infection - last episode 2004, sees urologist, Other Problems/Disorders - hx of bladder infections, last episode 2004 Musculoskeletal History: Reports: Hx Arthritis - BACK, BILATERAL HANDS AND FEET , Other Musculoskeletal History - FIBROMYALGIA Sensory History: Denies: Hx Contacts or Glasses, Hx Hearing Aid Opthamlomology History: Denies: Hx Contacts or Glasses Neurological History: Reports: Hx Headaches - SINUS HEADACHES, Hx Migraine - AROUND TIME OF MENSES, Hx Nerve Disease - FIBROMYALGIA Psychiatric History: Reports: Hx Anxiety - PTSD, Hx Depression - BIPOLAR and DEPRESSION, Hx Bipolar Disorder Denies: Hx Panic Disorder - Cancer History Hx Chemotherapy: No Hx Radiation Therapy: No - Surgical History Surgery Procedure, Year, and Place: LT ELBOW SURGERY. LT WRIST SURGERY. GALL BLADDER. RT OVARY REMOVAL. SINUS SURGERY X 4. LEFT & RIGHT FOOT SURGERY. D& C X 2. LEFT FOURTH TOE REPAIR [place] [facility] [place]x Anesthesia Reactions: No Infectious Disease History: No Infectious Disease History: Denies: Hx Hepatitis, Hx Human Immunodeficiency Virus (HIV), Traveled Outside the US in Last 30 Days - Family History Known Family History: Positive: Cardiac Disease, Other - Mcnair's Disease ( mother) NEGATIVE: aneurysms - Social History Alcohol Use: None Substance Use Type: Reports: None Smoking Status (MU): Never Smoked Tobacco Review of Systems Positive: Other - NEGATIVE: vision changes Positive: Nausea Neurological: Other - dizziness Positive: Headache. Negative: Numbness All Other Systems Reviewed And Are Negative: Yes Physical Exam - Summary Physical Exam Summary: Appearance: Well appearing, no pain distress Skin: warm, dry, reflects adequate perfusion Head/face: normal Eyes: EOMI, MANASA ENT: normal Neck: supple, non-tender Respiratory: CTA, breath sounds present Cardiovascular: RRR, pulses symmetrical Abdomen: non-tender, soft Bowel Sounds: present Musculoskeletal: normal, strength/ROM intact Neuro: normal, sensory motor intact, A&Ox3 Triage Information Reviewed: Yes Vital Signs On Initial Exam: Initial Vitals Temp Pulse Resp BP Pulse Ox 98.7 F 63 15 109/75 100 10/13/17 23:11 10/13/17 23:11 10/13/17 23:11 10/13/17 23:11 10/13/17 23:11 Vital Signs Reviewed: Yes Diagnostics - Vital Signs Vital Signs Temp Pulse Resp BP Pulse Ox 10/14/17 02:52 98.8 F 61 14 118/75 98 10/14/17 02:17 69 118/75 96 10/14/17 02:00 60 100 10/14/17 01:55 66 111/76 98 10/14/17 01:00 53 97 10/14/17 00:18 81 109/38 97 10/14/17 00:17 75 94 10/13/17 23:11 98.7 F 63 15 109/75 100 - Laboratory Lab Results: Lab Results 10/14/17 10/14/17 Range/Units 00:35 00:35 WBC 3.2 L (3.5-10.8) 10^3/ul RBC 3.61 L (4.00-5.40) 10^6/ul Hgb 12.0 (12.0-16.0) g/dl Hct 35 (35-47) % MCV 97 (80-97) fL MCH 33 H (27-31) pg MCHC 34 (31-36) g/dl RDW 12 (10.5-15) % Plt Count 149 L (150-450) 10^3/ul MPV 8.9 (7.4-10.4) um3 Neut % (Auto) 37.6 L (38-83) % Lymph % (Auto) 49.2 H (25-47) % [place] % (Auto) 10.9 H (0-7) % Eos % (Auto) 1.4 (0-6) % Baso % (Auto) 0.9 (0-2) % Absolute Neuts (auto) 1.2 L (1.5-7.7) 10^3/ul Absolute Lymphs (auto) 1.6 (1.0-4.8) 10^3/ul Absolute Monos (auto) 0.3 (0-0.8) 10^3/ul Absolute Eos (auto) 0 (0-0.6) 10^3/ul Absolute Basos (auto) 0 (0-0.2) 10^3/ul Absolute Nucleated RBC 0 10^3/ul Nucleated RBC % 0 Sodium 136 (135-145) mmol/L Potassium 4.2 (3.5-5.0) mmol/L Chloride 103 (101-111) mmol/L Carbon Dioxide 28 (22-32) mmol/L Anion Gap 5 (2-11) mmol/L BUN 9 (6-24) mg/dL Creatinine 0.84 (0.51-0.95) mg/dL Est GFR ( Amer) 89.1 (>60) Est GFR (Non-Af Amer) 73.7 (>60) BUN/Creatinine Ratio 10.7 (8-20) Glucose 88 (70-100) mg/dL Calcium 9.0 (8.6-10.3) mg/dL Result Diagrams: 10/14/17 00:35 10/14/17 00:35 Lab Statement: Any lab studies that have been ordered have been reviewed, and results considered in the medical decision making process. - CT CT Head CT Interpretation: Positive (See Comments) CT Interpretation Completed By: Radiologist - 1. Hyperdense lesion located in the medial aspect of the right frontal lobe. This appears to involve the dangelo matter and subcortical white matter. No significant mass effect. This is in atypical location for a hemorrhagic contusion. Suggest close followup and consider other imaging modalities with contrast and followup studies. This lesion was not seen on prior head CT of 03/03/2011. This report was reviewed by ED physician. Re-Evaluation - Re-Evaluation First Eval Re-Evaluation Time: 02:40 Comment: Discussed patient's plan of care as outpatient. She is agreeable with plan and will be discharged to home. Head Injury Course/Dx - Physician Notifications Discussed Care Of Patient With: James Bain Time Discussed With Above Provider: 01:06 Instructed by Provider To: Other - Dr. Bain discussed CT findings with Dr. Sorto at [phone]. [phone] -- Discussed patient's case with Dr. Murphy. He states patient can be worked up as an outpatient. Discharge - Sign-Out/Discharge Documenting (check all that apply): Patient Departure - discharge - Discharge Plan Condition: Improved Disposition: HOME Patient Education Materials: Dizziness (ED) Referrals: Anmol Murphy MD [Medical Doctor] - Omar Ruth MD [Primary Care Provider] - Additional Instructions: Neurosurgery recommends outpatient MRI with contrast. Return to the ER with severe headache, vomiting, numbness/weakness, new symptoms or other concerns. Follow up with your primary care physician with a call first thing in the morning for close follow-up before the weekend. There is a possibility of a venous malformation or other lesion present in your brain that may be causing the symptoms. - Attestation Statements Document Initiated by Scribe: Yes Documenting Scribe: Ralf Shah Provider For Whom Thomasibe is Documenting (Include Credential): Riley Sorto MD Scribe Attestation: I, Ralf Shah, scribed for Riley Sorto MD on 10/14/17 at 0746.
== END 2017-10-14 02:54 | disposition home or self-care (01) ==
LOC: ED 23:07
DX: R11.0 Nausea (principal); R51 Headache; R42 Dizziness and giddiness
CPT/HCPCS: 36415; 70450; 80048; 85025; 99283

== ENCOUNTER → 2017-10-29 09:09 | Day surgery (SDC) | payer OTHER ==
[~2017-10-29 09:09] MED LIST changes: +Acetaminophen TAB* 325 MG ONE; +Acetaminophen TAB* 325 MG PO PRN; +Bupivacaine 0.25% EPI 200,000* 30 ML SDV ONE; +DiMENhydriNATE IV* 50 MG/ML VIAL IV PUSH PRN; +DiMENhydriNATE IV* 50 MG/ML VIAL ONE; +EPHEDrine (Pressors)* 50 MG/ML VIAL ONE; +Famotidine IV* 10 MG/ML 2 ML (20 mg) IV ONE; +Famotidine IV* 10 MG/ML 2 ML (20 mg) ONE; +Ketorolac INJ* 30 MG/ML 1 ML VIAL ONE; +Lidocaine 2% PF * 5 ML VIAL ONE; +Midazolam* 1 MG/ML 5 ML VIAL (5 MG) ONE; +Naloxone* 0.4 MG/ML 1 ML VIAL IV PRN; +Ondansetron INJ* 2 MG/ML VIAL ONE; +Propofol* 10 MG/ML 20 ML BTL IV PUSH ONE; -Sodium Citrate/Citric Acid* 15 ML UDC PO ONE; +ceFAZolin 2 GM in NS PREMIX(*) 2 GM/100 ML BAG IVPB ONE; +fentaNYL* 50 MCG/ML 2 ML VIAL (100 MCG VIAL) ONE
[2017-10-29 15:15] VITALS: BP 100/67
--- NOTE | 2017-10-30 07:10 | RAD ---
INDICATION: Right foot hardware removal, intraoperative guidance. COMPARISON: Comparison is made with a prior x-ray study of the right foot from October 07, 2017. TECHNIQUE: 7.1 seconds of intermittent fluoroscopic guidance were provided and a single spot film of the right foot was obtained in the operating room. FINDINGS: There appears to be interval removal of a surgical screw which was present in the proximal fifth metatarsal. IMPRESSION: INTRAOPERATIVE CONTROL FILMS. CPT II Codes: G9500
--- NOTE | 2017-10-31 22:23 | OP ---
OPERATIVE REPORT: DATE OF OPERATION: 10/29/17 DATE OF : 74 SURGEON: Jama Albrecht MD CYBER INCIDENT RESPONDER: FAUSTINO Driver A physician mechanic's assistant was required for the length of the procedure for assistance with positioning, retraction, and closure. ANESTHESIOLOGIST: Olivia Mancuso MD ANESTHESIA: LMA, local anesthesia with 10 cc of 0.25% Marcaine with epinephrine. PRE-OP DIAGNOSIS: Painful hardware right foot 5th metatarsal shaft. POST-OP DIAGNOSIS: Painful hardware right foot 5th metatarsal shaft. OPERATIVE PROCEDURE: Removal of hardware, deep, from the right foot 5th metatarsal shaft. ANTIBIOTICS: 2 g Ancef IV. IV FLUIDS: 800 cc crystalloid. TOURNIQUET TIME: 30 minutes at 250 mmHg with a lower leg tourniquet. HMRZ-PB-ICGU TIME: 28 minutes. SPECIMENS: One screw approximately 1.4 mm in diameter. IMPLANTS: None. COMPLICATIONS: None. ESTIMATED BLOOD LOSS: Minimal. INDICATIONS FOR PROCEDURE: The patient is a 46-year-old woman, who I previously treated for right hand sprain and right foot contusion, who continued to have pain and tenderness about some hardware that had previously been placed in the right foot 5th metatarsal shaft. The patient had had a distant past surgical procedure performed by a centerpuncher for a painful bunionette of the 5th metatarsal. The patient was not sure what the rest of the procedure was and operative note was unavailable to her. X-ray images showed a screw placed into the shaft at the proximal 5th metatarsal. The screw was clearly long, multiple millimeters into the space between the 5th and 4th metatarsal shafts. I measured it to be proud medially by approximately 4.5 mm. I measured the screw diameter and actually to be 1.8 mm. When I blew up the magnification in the image, I measured again to be approximately 1.4 mm. Discussed risks and potential complications of procedure including bleeding, infection, nerve or blood vessel injury, fracture, lack of resolution of pain. DESCRIPTION OF PROCEDURE: In preoperative holding, the patient signed a written consent. Operative extremity was marked in preoperative holding. The patient was taken back to the operating room. The patient was placed on operating room table. As soon as monitors were applied, a mini time-out was performed, the area of planned surgery was prepped with an alcohol swab and that performed injection of local anesthetic, approximately 10 cc of 0.25% Marcaine with epinephrine just proximal to the planned surgical incision site. Bump was placed under the right hemipelvis. A bone foam was placed under the left lower extremity. Tourniquet was placed around the right lower leg. Right lower extremity was prepped and draped. Formal surgical time-out was performed. The Esmarch was applied and tourniquet elevated. I brought the mini C-arm in and confirmed the appropriateness of my planned surgical incision. Surgical incision was to be approximately 2 cm long if not 1.5 cm. I incised the skin. I then used scissors to dissect down to bone. I revealed the head of the screw. There was some bone within the head of the screw. I removed that with a rongeur and then a dental pick. We tried a variety of screwdrivers from multiple sets. None fit the head of the screw. Therefore, we used the difficult hardware removal tray from [employer] and I used that to remove some bone around the circumference of the head of the screw. I did that manually, not on power. I then was able to use a solid needle boom truck driver to untwist the screw from bone, removing it. Obtained mini C-arm image to confirm full removal of hardware. Irrigation. Debridement of passive screw and bone with a small curette. Closure of the skin with simple and horizontal mattress stitches using nylon 3- 0 suture. Xeroform, 4x4s, sterile Webril, Coban. The patient was awakened and extubated, and brought to the PACU. The patient was discharged home when medically stable. We attempted to find a stiff postoperative shoe for the patient. The patient was sent home with a limited quantity, 10 tablets of Percocet to take as needed for pain. The patient will follow up with me 10 to 14 days postoperatively for a wound check and removal of stitches. The patient will be weightbearing as tolerated. When I see the patient in clinic, if she desires to have physical therapy, we will order physical therapy. [id number]/[facility] #: [id number] ISA
== END | disposition home or self-care (01) ==
LOC: OR 09:09
PROVIDERS: ATTEND Orthopaedic Surgery
DX: T84.84XA Pain due to internal orthopedic prosthetic devices, implants and grafts, initial encounter (principal); Y83.1 Surgical operation with implant of artificial internal device as the cause of abnormal reaction of the patient, or of later complication, without mention of misadventure at the time of the procedure; M79.7 Fibromyalgia; F43.10 Post-traumatic stress disorder, unspecified; F31.9 Bipolar disorder, unspecified; J45.909 Unspecified asthma, uncomplicated; K21.9 Gastro-esophageal reflux disease without esophagitis
CPT/HCPCS: 76000; 81025; 88300; A9270-GY; J0690; J1240; J1885; J2250; J2405; J2704; J3010

== ENCOUNTER 2018-06-10 18:01 | Emergency (ER) | payer OTHER ==
--- NOTE | 2018-06-10 19:17 | ED ---
Headache - HPI Summary HPI Summary: This patient is a 47 year old F presenting to [facility] accompanied by with a chief complaint of headaches acute on chronic. Patient states her headaches have been worsening since a fall that occurred last week. Patient states she tripped, fell, and miranda her head. The patient rates the pain 4/10 in severity. Symptoms aggravated by nothing. Symptoms alleviated by nothing. Patient denies nausea, vomiting, and blurred vision. Patient states she has a known cavernous angioma and is scheduled for neurosurgery in June. - History Of Current Complaint Chief Complaint: EDHeadache Stated Complaint: DOCTOR SENT FOR CT SCAN PER PT Time Seen by Provider: 06/10/18 19:07 Hx Obtained From: Patient Hx Last Menstrual Period: 11/18/16 Onset/Duration: Sudden Onset, Started weeks ago, Worse Since - One week ago Initially Headache Was: Moderate Currently Pain Is: Moderate Timing: Constant Location of Headache: Diffuse Aggravating Factor: Nothing Allevating Factors: Nothing Associated Signs And Symptoms: Other (Noted In Comments) - Negative nausea, vomiting, and blurred vision - Allergies/Home Medications Allergies/Adverse Reactions: Allergies Allergy/AdvReac Type Severity Reaction Status Date / Time azithromycin [From Zithromax] Allergy Severe swelling Verified 10/29/17 09:44 of lips,face, and throat iodine Allergy Severe Rash And Verified 10/29/17 09:44 Itching, trouble breathing nitrofurantoin Allergy Severe Swelling Verified 10/29/17 09:44 [From Macrodantin] Of Face,Lips,& Throat prednisone Allergy Severe Swelling Verified 10/29/17 09:44 Of Face,Lips,& Throat sulfamethoxazole Allergy Severe Swelling Verified 10/29/17 09:44 [From Bactrim] Of Face,Lips,& Throat trimethoprim [From Bactrim] Allergy Severe Swelling Verified 10/29/17 09:44 Of Face,Lips,& Throat hydrocodone AdvReac Intermediate See Comment Verified 10/29/17 09:44 codeine AdvReac See Comment Verified 10/29/17 09:44 ALL STEROIDS Allergy Severe RASH, Uncoded 10/29/17 09:44 DIFFICULTY BREATHING MALT,DAIRY Allergy Severe RASH, Uncoded 10/29/17 09:44 DIFFICULTY BREATHING YEAST,SOY,BLACK PEPPER Allergy Severe RASH, Uncoded 10/29/17 09:44 DIFFICULTY BREATHING Environmental: Allergy Intermediate Congestion Uncoded 10/29/17 09:44 tree/grass/pollen CT SCAN DYE Allergy LIP Uncoded 10/29/17 09:44 SWELLING, RESPIRATORY DIFFICULTY Home Medications: Home Medications Ipratropium Br (Nf)0.03% Nasal [Ipratropium [place]] 1 dose MUCOUS_MEM TID PRN 06/10/18 [History Confirmed 06/10/18] Montelukast Sodium TAB* [Singulair TAB*] 10 mg PO DAILY 06/10/18 [History Confirmed 06/10/18] PMH/Surg Hx/FS Hx/Imm Hx Previously Healthy: No Endocrine/Hematology History: Reports: Hx Bone Marrow Disease - hx of thrombocytopenia, Hx Thyroid Disease - hx of, but no longer taking medication, Hx Anemia Denies: Hx Diabetes Cardiovascular History: Denies: Hx Hypertension, Hx Pacemaker/ICD, Other Cardiovascular Problems/ Disorders Respiratory History: Reports: Hx Asthma - USES INHALER, cold and allergy induced Denies: Hx Chronic Obstructive Pulmonary Disease (COPD) GI History: Reports: Hx Gastroesophageal Reflux Disease - hx of, no longer taking medication, Hx Irritable Bowel, Other GI Disorders - pt states she often has "low blood sugar", 2-3 x a week Denies: Hx Ulcer History: Reports: Hx Kidney Infection - last episode 2004, sees urologist, Other Problems/Disorders - hx of bladder infections, last episode 2004 Musculoskeletal History: Reports: Hx Arthritis - BACK, BILATERAL HANDS AND FEET , Other Musculoskeletal History - FIBROMYALGIA Sensory History: Denies: Hx Contacts or Glasses, Hx Hearing Aid Opthamlomology History: Denies: Hx Contacts or Glasses Neurological History: Reports: Hx Headaches - SINUS HEADACHES, Hx Migraine - AROUND TIME OF MENSES, Hx Nerve Disease - FIBROMYALGIA, Other Neuro Impairments/ Disorders - 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 LT WRIST SURGERY. GALL BLADDER. RT OVARY REMOVAL. SINUS SURGERY X 4. LEFT & RIGHT FOOT SURGERY. D& C X 2. LEFT FOURTH TOE REPAIR 2012 [facility] – [place] Hx Anesthesia Reactions: No Infectious Disease History: No Infectious Disease History: Denies: Hx Hepatitis, Hx Human Immunodeficiency Virus (HIV), Traveled Outside the US in Last 30 Days - Family History Known Family History: Positive: Cardiac Disease, Other - Mcnair's Disease ( mother) NEGATIVE: aneurysms - Social History Occupation: Unemployed Lives: With Family Alcohol Use: None Substance Use Type: Reports: None Smoking Status (MU): Never Smoked Tobacco Review of Systems Negative: Blurred Vision Negative: Vomiting, Nausea Positive: Headache All Other Systems Reviewed And Are Negative: Yes Physical Exam - Summary Physical Exam Summary: Appearance: Well appearing, no pain distress Skin: warm, dry, reflects adequate perfusion Head/face: normal Eyes: EOMI, MANASA ENT: normal Neck: supple, non-tender Respiratory: CTA, breath sounds present Cardiovascular: RRR, pulses symmetrical Abdomen: non-tender, soft Musculoskeletal: normal, strength/ROM intact Neuro: normal, sensory motor intact, A&Ox3 Triage Information Reviewed: Yes Vital Signs On Initial Exam: Initial Vitals Temp Pulse Resp BP Pulse Ox 98.3 F 80 20 111/69 99 06/10/18 18:19 06/10/18 18:19 06/10/18 18:19 06/10/18 18:19 06/10/18 18:19 Vital Signs Reviewed: Yes Diagnostics - Vital Signs Vital Signs Temp Pulse Resp BP Pulse Ox 06/10/18 19:04 70 82 06/10/18 19:03 72 121/66 97 06/10/18 18:19 98.3 F 80 20 111/69 99 - Laboratory Lab Statement: Any lab studies that have been ordered have been reviewed, and results considered in the medical decision making process. - CT Brain CT CT Interpretation Completed By: Radiologist Summary of CT Findings: Brain CT reveals, per radiologist, there is a stable 1.6 x 1.1 cm hyperdense lesion noted in the medial aspect of the right frontal lobe. MRI may be performed for further catheterization. ED physician has reviewed this radiology report. Re-Evaluation - Re-Evaluation First Eval Re-Evaluation Time: 20:37 Change: Unchanged Comment: Discussed results and plan of care with the patient. The patient had an MRI two days and refused a repeat MRI today. Headache Course/Dx - Course Course Of Treatment: This patient is a 47 year old F presenting to [facility] accompanied by with a chief complaint of headaches acute on chronic. Patient states her headaches have been worsening since a fall that occurred last week. Patient states she has a known cavernous angioma and is scheduled for neurosurgery in June. Physical Exam Findings: Nml. Brain CT reveals, per radiologist, there is a stable 1.6 x 1.1 cm hyperdense lesion noted in the medial aspect of the right frontal lobe. MRI may be performed for further catheterization. The patient had an MRI two days and refused a repeat MRI today. As theres no bleeding, the patient will be discharged. She will follow up with her neurosurgeon in [place]. The patient is agreeable with this plan. - Diagnoses Differential Diagnosis/HQI/PQRI: Subdural Hematoma, Subarachnoid Hemorrhage Provider Diagnoses: Headache, Head injury Discharge - Sign-Out/Discharge Documenting (check all that apply): Patient Departure - Discharge home Patient Received Moderate/Deep Sedation with Procedure: No - Discharge Plan Condition: Stable Disposition: HOME Patient Education Materials: Head Injury (ED), Acute Headache (ED) Referrals: Omar Ruth MD [Primary Care Provider] - 3 Days Additional Instructions: RETURN TO THE EMERGENCY DEPARTMENT FOR NEW OR WORSENING SYMPTOMS - Billing Disposition and Condition Condition: STABLE Disposition: Home - Attestation Statements Document Initiated by Scribe: Yes Documenting Scribe: Carlene Sevilla Provider For Whom Hernando is Documenting (Include Credential): Dr. Tom Gonzalez MD Scribe Attestation: Carlene Lanza scribed for Dr. Tom Gonzalez MD on 06/11/18 at 0114. Scribe Documentation Reviewed: Yes Provider Attestation: The documentation as recorded by the Carlene maciel accurately reflects the service I personally performed and the decisions made by me, Dr. Tom Gonzalez MD Status of Scribe Document: Viewed
[2018-06-10 20:49] VITALS: BP 101/68
== END 2018-06-10 20:45 | disposition home or self-care (01) ==
LOC: ED 18:01
DX: S09.90XA Unspecified injury of head, initial encounter (principal); X58.XXXA Exposure to other specified factors, initial encounter; D18.09 Hemangioma of other sites; D69.6 Thrombocytopenia, unspecified; J45.909 Unspecified asthma, uncomplicated; K58.9 Irritable bowel syndrome, unspecified; M79.7 Fibromyalgia; F41.9 Anxiety disorder, unspecified; F31.9 Bipolar disorder, unspecified; Z88.3 Allergy status to other anti-infective agents; Z88.8 Allergy status to other drugs, medicaments and biological substances; Z88.2 Allergy status to sulfonamides; Z88.5 Allergy status to narcotic agent; Z91.041 Radiographic dye allergy status; Z79.51 Long term (current) use of inhaled steroids
CPT/HCPCS: 70450; 99282

== ENCOUNTER 2019-01-25 17:48 | Emergency (ER) | payer OTHER ==
--- OUTSIDE RECORDS SUMMARY | 2019-01-25 18:20 | XMS REPORT ---
:1970 Author Name [place] [address] Care Team Providers Name Role Phone Chika Mayberry Unavailable Unavailable Jeanne Sims Unavailable Unavailable Allergies, Adverse Reactions, Alerts Allergy Code CodeSystem Reaction Severity Status Substance RxNorm Medications Medication Medication Medication Start Route Dose Status Fill Code CodeSystem Date Instructions RxNorm NoCurrentDosage No NoCurrentFrequency Longer Active bupropion RxNorm 2019-0 oral 200 mg 1 tablet Active 1 tablet HCl 6-13 sustained-release once a day 12 hr once a day for 90 day(s) lamotrigine RxNorm 2019-0 oral 200 mg 1 tablet Active Take 1 tablet 5-08 once a day once a day for 90 day(s) trazodone RxNorm 2019-0 oral 150 mg 1 tablet at Active 1 tablet at 5-08 bedtime bedtime for 90 day(s) lamotrigine RxNorm 2018-0 oral 200 mg tablet Active for 90 5-09 day(s) trazodone RxNorm oral 150 mg tablet Active for 90 day(s) Hospital Discharge Medications Medication Direction Start Date Status Indications Fill Instuctions No Discharge Medication Problems Problem Name Code CodeSystem Start Date End Date Status SNOMED-CT 2018-05-06 Active SNOMED-CT 2018-06-13 Active SNOMED-CT 2018-06-13 Active Laboratory Values/Results Test Test Code Code System Actual Result Date LOINC Procedures Procedure Name Code CodeSystem Target Site Date of Procedure SNOMED-CT () 2018-06-14 SNOMED-CT () 2018-08-12 SNOMED-CT () 2018-09-19 SNOMED-CT () 2018-10-14 SNOMED-CT () 2018-05-16 Encounter Diagnosis Code CodeSystem Description Date Finding Finding Code Status 30808 CPT Non-Billable 2018-10-17 - SNOMED-CT Active 3 Vital Signs Vitals Date Value Immunizations Vaccine Name Vaccine Code CodeSystem Date Status Social History Element Description Start Date End Date Code CodeSystem Description SNOMED-CT Hospital Discharge Instructions Reason For Referral
[2019-01-25] MEDS ORDERED: Ondansetron INJ* 2 MG/ML VIAL IV ONE (19:32)
[2019-01-25] MEDS ORDERED: NS 0.9% 1000 ML** 1,000 ML IV ONE (19:32)
[2019-01-25] MEDS ORDERED: Ketorolac INJ* 30 MG/ML 1 ML VIAL IV PUSH ONE (19:32)
--- NOTE | 2019-01-25 19:55 | ED ---
GI/ HPI - HPI Summary HPI Summary: 48-year-old female presents with nausea and vomiting for the past couple days. She she has been having a stomach ache. States she's been having fevers. She denies any chest pain or shortness of breath No cough. She is Tylenol and Pepto-Bismol. She has not been able to keep anything down. She states has not have a bowel movement. Denies any diarrhea. No urinary symptoms. Has had her gallbladder removed. No one else sick. Denies eating anything different. No recent travel. Has history of fibromyalgia. - History of Current Complaint Chief Complaint: EDNauseaVomitDiarrh Time Seen by Provider: 01/25/19 19:22 Stated Complaint: GENERAL ILLNESS PER PT Hx Last Menstrual Period: 11/18/16 Pain Intensity: 0 - Allergy/Home Medications Allergies/Adverse Reactions: Allergies Allergy/AdvReac Type Severity Reaction Status Date / Time azithromycin [From Zithromax] Allergy Severe swelling Verified 01/25/19 18:15 of lips,face, and throat iodine Allergy Severe Rash And Verified 01/25/19 18:15 Itching, trouble breathing nitrofurantoin Allergy Severe Swelling Verified 01/25/19 18:15 [From Macrodantin] Of Face,Lips,& Throat prednisone Allergy Severe Swelling Verified 01/25/19 18:15 Of Face,Lips,& Throat sulfamethoxazole Allergy Severe Swelling Verified 01/25/19 18:15 [From Bactrim] Of Face,Lips,& Throat trimethoprim [From Bactrim] Allergy Severe Swelling Verified 01/25/19 18:15 Of Face,Lips,& Throat hydrocodone AdvReac Intermediate See Comment Verified 01/25/19 18:15 codeine AdvReac See Comment Verified 01/25/19 18:15 ALL STEROIDS Allergy Severe RASH, Uncoded 01/25/19 18:15 DIFFICULTY BREATHING MALT,DAIRY Allergy Severe RASH, Uncoded 01/25/19 18:15 DIFFICULTY BREATHING YEAST,SOY,BLACK PEPPER Allergy Severe RASH, Uncoded 01/25/19 18:15 DIFFICULTY BREATHING Environmental: Allergy Intermediate Congestion Uncoded 01/25/19 18:15 tree/grass/pollen CT SCAN DYE Allergy LIP Uncoded 01/25/19 18:15 SWELLING, RESPIRATORY DIFFICULTY Home Medications: Home Medications clonazePAM TAB(*) [KlonoPIN TAB(*)] 1 mg PO BID PRN MDD 2 mg 01/25/19 [History Confirmed 01/25/19] lamoTRIgine TAB(*) [LaMICtal TAB(*)] 200 mg PO DAILY 01/25/19 [History Confirmed 01/25/19] traZODone TAB* [Desyrel TAB*] 150 mg PO BEDTIME 01/25/19 [History Confirmed 01/03] PMH/Surg Hx/FS Hx/Imm Hx Endocrine/Hematology History: Reports: Hx Bone Marrow Disease - hx of thrombocytopenia, Hx Thyroid Disease - hx of, but no longer taking medication, Hx Anemia Denies: Hx Diabetes Cardiovascular History: Denies: Hx Hypertension, Hx Pacemaker/ICD, Other Cardiovascular Problems/ Disorders Respiratory History: Reports: Hx Asthma - USES INHALER, cold and allergy induced Denies: Hx Chronic Obstructive Pulmonary Disease (COPD) GI History: Reports: Hx Gastroesophageal Reflux Disease - hx of, no longer taking medication, Hx Irritable Bowel, Other GI Disorders - pt states she often has "low blood sugar", 2-3 x a week Denies: Hx Ulcer History: Reports: Hx Kidney Infection - last episode 2004, sees urologist, Other Problems/Disorders - hx of bladder infections, last episode 2004 Musculoskeletal History: Reports: Hx Arthritis - BACK, BILATERAL HANDS AND FEET , Other Musculoskeletal History - FIBROMYALGIA Sensory History: Denies: Hx Contacts or Glasses, Hx Hearing Aid Opthamlomology History: Denies: Hx Contacts or Glasses Neurological History: Reports: Hx Headaches - SINUS HEADACHES, Hx Migraine - AROUND TIME OF MENSES, Hx Nerve Disease - FIBROMYALGIA, Other Neuro Impairments/ Disorders - 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 LT WRIST SURGERY. GALL BLADDER. RT OVARY REMOVAL. SINUS SURGERY X 4. LEFT & RIGHT FOOT SURGERY. D& C X 2. LEFT FOURTH TOE REPAIR 2012 [facility] [place] Hx Anesthesia Reactions: No Infectious Disease History: No Infectious Disease History: Denies: Hx Hepatitis, Hx Human Immunodeficiency Virus (HIV), Traveled Outside the [place] in Last 30 Days - Family History Known Family History: Positive: Cardiac Disease, Other - Mcnair's Disease ( mother) NEGATIVE: aneurysms - Social History Alcohol Use: None Substance Use Type: Reports: None Smoking Status (MU): Never Smoked Tobacco Review of Systems Positive: Fever Negative: Chest Pain Negative: Shortness Of Breath Positive: Abdominal Pain, Vomiting, Diarrhea, Nausea All Other Systems Reviewed And Are Negative: Yes Physical Exam Triage Information Reviewed: Yes Vital Signs On Initial Exam: Initial Vitals Temp Pulse Resp BP Pulse Ox 98.9 F 88 16 123/77 99 01/25/19 18:12 01/25/19 18:12 01/25/19 18:12 01/25/19 18:12 01/25/19 18:12 Vital Signs Reviewed: Yes Appearance: Positive: Well-Appearing Skin: Positive: Warm, Dry Head/Face: Positive: Normal Head/Face Inspection Eyes: Positive: Normal, EOMI, MANASA, Conjunctiva Clear ENT: Positive: Normal ENT inspection, Pharynx normal, TMs normal Respiratory/Lung Sounds: Positive: Clear to Auscultation, Breath Sounds Present Cardiovascular: Positive: Normal, RRR Abdomen Description: Positive: Soft, Other: - tenderness in luq Bowel Sounds: Positive: Present Musculoskeletal: Positive: Normal Neurological: Positive: Normal Psychiatric: Positive: Normal Procedures - Sedation Patient Received Moderate/Deep Sedation with Procedure: No Diagnostics - Vital Signs Vital Signs Temp Pulse Resp BP Pulse Ox 01/25/19 18:12 98.9 F 88 16 123/77 99 - Laboratory Result Diagrams: 01/25/19 19:53 01/25/19 19:53 Lab Statement: Any lab studies that have been ordered have been reviewed, and results considered in the medical decision making process. Re-Evaluation - Re-Evaluation First Eval Re-Evaluation Time: 20:47 Change: Improved Comment: feeling better GIGU Course/Dx - Course Course Of Treatment: 48-year-old female presents with nausea and vomiting for the past couple days. She she has been having a stomach ache. States she's been having fevers. She denies any chest pain or shortness of breath No cough. She is Tylenol and Pepto-Bismol. She has not been able to keep anything down. She states has not have a bowel movement. Denies any diarrhea. No urinary symptoms. Has had her gallbladder removed. No one else sick. Denies eating anything different. No recent travel. Has history of fibromyalgia. On exam tenderness of left upper quadrant. wbc 2.5 which is her normal. crp elevated. electrolytes normal. gave fluids and zofran and feeling better. will discharge with zofran. told follow up with primary. likely viral syndrome. patient understand and agrees with plan. - Diagnoses Differential Diagnoses - Female: Gastroenteritis (Viral), Gastroenteritis ( Bacterial), Urinary Tract Infection Provider Diagnoses: Nausea, Abdominal pain Discharge ED - Sign-Out/Discharge Documenting (check all that apply): Patient Departure - Discharge Plan Condition: Good Disposition: HOME Prescriptions: Ondansetron ODT TAB* [Zofran 4 MG Odt TAB*] 4 mg PO Q6H PRN #16 tab.odt PRN Reason: Nausea Patient Education Materials: Acute Nausea and Vomiting (ED) Referrals: Omar Ruth MD [Primary Care Provider] - Additional Instructions: Can take Zofran every 6 hours as needed for nausea Drink small amounts of fluid as tolerated When able to eat follow BRAT diet: Bananas, rice, applesauce, toast Take Tylenol for pain as needed every 6 hours Follow up with primary within 5 days Return to ED if develop any new or worsening symptoms - Billing Disposition and Condition Condition: GOOD Disposition: Home
[2019-01-25 20:08] LABS: ABS Lymphocytes 0.8 10^3/ul (1.0-4.8); ABS Monocytes 0.5 10^3/ul (0-0.8); ABS Neutrophils 1.3 10^3/ul (1.5-7.7); Eosinophil % 0.6 %; Hematocrit 35 % (35-47); Hemoglobin 12.6 g/dL (12.0-16.0); Lymphocyte % 29.6 %; Mean Corpuscular HGB Conc 36 g/dL (31-36); Mean Corpuscular Hemoglobin 34 pg (27-31); Mean Corpuscular Volume 97 fL (80-97); Mean Platelet Volume 9.7 fL (7.4-10.4); Platelet Count 134 10^3/uL (150-450); Red Blood Count 3.65 10^6 /uL (3.70-4.87); Red Cell Distribution Width 12 % (10-15); White Blood Count 2.6 10^3/uL (3.5-10.8)
[2019-01-25 20:23] LABS: ALT 20 U/L (7-52); AST 24 U/L (13-39); Albumin 3.9 g/dL (3.2-5.2); Albumin/Globulin Ratio 1.5 (1-3); Alkaline Phosphatase 63 U/L (34-104); Anion Gap 6 mmol/L (2-11); BUN/Creatinine Ratio 19.1 (8-20); Blood Urea Nitrogen 13 mg/dL (6-24); C Reactive Protein 17.48 mg/L (<8.01); CO2 Carbon Dioxide 27 mmol/L (22-32); Calcium 8.5 mg/dL (8.6-10.3); Chloride 102 mmol/L (101-111); EGFR African American 112.7 (>60); EGFR Non-African American 93.2 (>60); Globulin 2.6 g/dL (2-4); Glucose 73 mg/dL (70-100); Potassium 3.5 mmol/L (3.5-5.0); Sodium 135 mmol/L (135-145); Total Protein 6.5 g/dL (6.4-8.9)
[2019-01-25 20:28] LABS: HCG Pregnancy < 0.60 mIU/mL
[2019-01-25] MEDS ORDERED: O ndansetron ODT 4MG 5TAB PRPK 4 MG PAK PO ONE (20:49)
[2019-01-25 21:27] VITALS: BP 107/67
[2019-01-25] MEDS ORDERED: Ondansetron ODT TAB* 4 MG PO ONE (22:00)
== END 2019-01-25 21:30 | disposition home or self-care (01) ==
LOC: ED 17:48
DX: R10.9 Unspecified abdominal pain (principal); R11.2 Nausea with vomiting, unspecified; R50.9 Fever, unspecified; K21.9 Gastro-esophageal reflux disease without esophagitis; E03.9 Hypothyroidism, unspecified; J45.909 Unspecified asthma, uncomplicated; F41.9 Anxiety disorder, unspecified; F32.9 Major depressive disorder, single episode, unspecified; Z79.899 Other long term (current) drug therapy
CPT/HCPCS: 36415; 80053; 83605; 83690; 84702; 85025; 86140; 96361; 96374; 99282; A9270-GY; J1885; J2405